=== PATIENT | female | born 1980 | race Caucasian/White ===

== ENCOUNTER → 2018-06-19 07:35 | Outpatient (CLI) | payer MEDICAID | END | disposition home or self-care (01) | LOC: D.NM 07:35 | DX: R11.0 Nausea (principal); R14.0 Abdominal distension (gaseous); R10.9 Unspecified abdominal pain ==

== ENCOUNTER → 2018-08-13 09:03 | Outpatient (CLI) | payer MEDICAID | END | disposition home or self-care (01) | LOC: D.OPS 09:03 | DX: K21.9 Gastro-esophageal reflux disease without esophagitis (principal); Z01.812 Encounter for preprocedural laboratory examination ==

== ENCOUNTER 2018-09-09 06:05 | Day surgery (SDC) | payer MEDICAID ==
[2018-09-06 09:45] LABS: HEMATOCRIT 37.8 % (36.0-48.0); HEMOGLOBIN 12.9 g/dL (12-16); MCH 28.4 pg (26.0-34.0); MCHC 34.1 g/dL (31.0-37.0); MCV 83.1 fL (80.0-100.0); MEAN PLATELET VOLUME 9.5 fL (7.4-10.4); RBC 4.55 10x6/uL (4.00-5.40); RDW 15.3 % (11.5-14.5); WBC 7.7 10x3/uL (4.8-10.8)
[~2018-09-09] VITALS: Ht 157.5 cm; Wt 95.5 kg
[~2018-09-09 06:05] MED LIST: CYCLOBENZAPRINE10 MG PO; LIDOCAINE 5 % O35 GM TOPICAL; PROTONIX40 MG PO; ULTRAM50 MG PO; VOLTAREN100 GM TOPICAL
[2018-09-09 06:51] VITALS: BP 132/67; BMI 38.1
--- NOTE | 2018-09-09 12:04 | NUR ---
[id number] REPORT PHONED TO CALISTA COSTELLO TO [id number] BY BED
[2018-09-09] MEDS ORDERED: HYDROCODON-ACE1 EA10 PO (12:17)
[2018-09-09 16:16] VITALS: BP 113/66; Ht 157.5 cm; Wt 95.5 kg
[2018-09-09 17:17] VITALS: BP 133/77
--- NOTE | 2018-09-09 17:25 | NUR ---
ICE PACKS GIVEN, SPRITE GIVEN, SCD'S ON. NO FURTHER NEEDS AT THIS TIME
--- NOTE | 2018-09-09 20:00 | NUR ---
ASSESSMENT PE FLOWSHEET. LAP SITES X5 TO ABDOMEN C/D/I. IV PATENT RT ARM OF LR AT 75CC'S/HR SITE CLEAR RIG WELDER OF MORPINE IN USE WITH SETTINGS AT 1MG Q10MIN. W/10MG Q4HR L/O. SR UP X2 CALL LIGHT WITHIN REACH. SCD'S OFF AT THIS TIME LYING ON BED.
--- NOTE | 2018-09-09 21:45 | NUR ---
INSTRUCTIONS GIVEN TO PATIENT AND FAMILY MEMBER TOWALK IN [place] AT LEAST 3 TIMES PER MD. UP IN HALLWAY WITH SPOUSE BESIDE HER AMBULATED. X3 LAPS TOLERATED WELL. VOIDS WELL IN BR.
--- NOTE | 2018-09-10 | NUR ---
AWAKE LYING IN BED SPOUSE AT BEDSIDE. SR UP X2 CALL LIGHT WITHIN REACH TAKING PO CLEAR LIQUIDS WELL.
--- NOTE | 2018-09-10 05:55 | NUR ---
EYES CLOSED RESPIRATIONS WITH EASE AND UNLABORED SR UP X2 CALL LIGHT WITHIN REACH DENIES NEEDS.
[2018-09-10 06:00] LABS: BASOPHILS 0.1 % (0-2); EOSINOPHILS 0 % (0-7); HEMATOCRIT 33.1 % (36.0-48.0); HEMOGLOBIN 10.8 g/dL (12-16); IMMATURE GRANULOCYTES 0.2 % (0-5); LYMPHOCYTES 12.7 % (15-50); MCH 27.8 pg (26.0-34.0); MCHC 32.6 g/dL (31.0-37.0); MCV 85.1 fL (80.0-100.0); MEAN PLATELET VOLUME 9.8 fL (7.4-10.4); MONOCYTES 4.2 % (2-11); NEUTROPHILS 82.8 % (40-80); PLATELET COUNT 315 10x3/uL (130-400); RBC 3.89 10x6/uL (4.00-5.40); RDW 15.8 % (11.5-14.5); WBC 16.8 10x3/uL (4.8-10.8)
[2018-09-10 06:12] VITALS: BP 132/70
[2018-09-10 06:33] LABS: ALBUMIN 2.9 g/dL (3.4-5.0); ALKALINE PHOSPHATASE 68 U/L (46-116); ALT (SGPT) 32 U/L (10-68); CALC OSMOLALITY 286 mosm/kg (275-300); CALCIUM 8.2 mg/dL (8.5-10.1); CARBON DIOXIDE 26.1 mmol/L (21.0-32.0); CHLORIDE - SERUM 109 mmol/L (98-107); CREATININE - SERUM 0.7 mg/dL (0.6-1.3); GLUCOSE 101 mg/dL (74-106); POTASSIUM - SERUM 3.5 mmol/L (3.5-5.1); PROTEIN - SERUM 6.1 g/dL (6.4-8.2); SODIUM 145 mmol/L (136-145); UREA NITROGEN 7 mg/dL (7-18); eGFR NON AFRICAN AMERICAN > 90 mL/min (90-120)
--- NOTE | 2018-09-10 07:30 | NUR ---
AM ROUNDS COMPLETED VSS, AAOX3, AT BEDSIDE. NO S/S OF RR DISTRESS, RR EVEN AND UNLABORED. PT DENIES ANY NEED FOR COMFORT CARE AT THIS TIME. WILL CPOC.
--- NOTE | 2018-09-10 08:00 | NUR ---
PT OUT FOR SWALLOW STUDY. WILL CPOC.
[2018-09-10] MEDS ORDERED: ZOFRAN ODT4 MG/UDTAB PO (08:27)
[2018-09-10] MEDS ORDERED: OXYCODONE HCL5 M1 PO (08:27)
[2018-09-10 09:46] VITALS: BP 141/73
--- NOTE | 2018-09-10 11:00 | NUR ---
PT TEAM FOREMAN DC'D, WASTED 16. REMOVED PT IV, APPLIED GAUZE AND TAPED. PT TOLERATE WELL. PT CURRNTLY AWAITING DC. WILL CPOC. CL IN REACH, BED IN LOW, SR UP X2.
--- NOTE | 2018-09-10 11:27 | NUR ---
READ DC INSTRUCTION TO PT. PT VERBALIZED UNDERSTANDING. ALL PT BELONGING SENT HOME WITH PT, PROVIDED ICE PACK FOR PT PER PT REQUEST. PT WHEELED DOWNSTRAIRS. PT DC'D HOME.
== END 2018-09-10 11:57 | disposition home or self-care (01) ==
LOC: D.OPS 06:05 → D.PAN 08:00 → D.OPS 08:00 → D.MS 12:05 → D.OPS 09-10 10:50
PROVIDERS: Anesthesiology; ATTEND Surgery
DX: K21.9 Gastro-esophageal reflux disease without esophagitis (principal); K44.9 Diaphragmatic hernia without obstruction or gangrene; K31.84 Gastroparesis; F17.200 Nicotine dependence, unspecified, uncomplicated; Z01.812 Encounter for preprocedural laboratory examination

== ENCOUNTER → 2018-10-08 13:00 | Outpatient (CLI) | payer MEDICAID ==
[2018-09-09 16:16] VITALS: BMI 38.5
[~2018-10-08 13:00] MED LIST changes: +HYDROCODON-ACE1 EA10 PO; +OXYCODONE HCL5 M1 PO; +ZOFRAN ODT4 MG/UDTAB PO
== END | disposition home or self-care (01) ==
LOC: D.CT 13:00
PROVIDERS: ATTEND Surgery
DX: R10.9 Unspecified abdominal pain (principal)